=== PATIENT | male | born 1960 | race Caucasian/White ===

== ENCOUNTER 2024-07-22 11:05 | Inpatient (IN) | payer OTHER ==
--- NOTE | 2024-07-22 11:33 | ED ---
Abdominal Pain HPI - General Chief Complaint: Abdominal Pain Stated Complaint: abd pain Time Seen by Provider: 07/22/24 11:18 Source: patient, EMS, RN notes reviewed Mode of arrival: EMS Limitations: no limitations - History of Present Illness Initial Comments: This is a 63-year-old male who presents to the emergency department for abdominal pain. Patient is currently at [facility] for alcohol abuse and has been there since 07/10/2024. States that he started to develop abdominal pain and nausea yesterday. However, this morning the pain became much worse and he went to alert staff. Pain encompasses his whole abdomen, but is worse in the upper portion. He continues to feel nauseous. Denies any history of similar problems in the past. Last bowel movement was yesterday. MD Complaint: abdominal pain - Related Data Home Medications Medication Instructions Recorded Confirmed Acetaminophen Tab [Tylenol] 650 mg PO Q4H PRN 07/22/24 07/22/24 Calcium Phos/D3/Magnesium/Zinc 1 tab PO TID PRN 07/22/24 07/22/24 [Ztlzcfe-Jsw-Wmrr-Vitamin D3] Chlorpheniramine Maleate 4 mg PO Q4H PRN 07/22/24 07/22/24 [Chlor-Trimeton] Ibuprofen [Motrin Ib] 600 mg PO Q6H PRN 07/22/24 07/22/24 Multivitamins, Thera [Multivitamin 1 tab PO DAILY 07/22/24 07/22/24 (formulary)] Thiamine [Vitamin B-1] 100 mg PO DAILY 07/22/24 07/22/24 Tolnaftate [Tinactin] 1 applic TOPICAL DIRECTED 07/22/24 07/22/24 cloNIDine HCL [Catapres] 0.1 - 0.3 mg PO Q4H PRN 07/22/24 07/22/24 guaiFENesin SYRUP 100MG/5ML 200 mg PO Q4H PRN 07/22/24 07/22/24 [Robitussin] ondansetron HCL [Ondansetron HCl] 8 mg PO Q6H PRN 07/22/24 07/22/24 traZODone HCL [Desyrel] 50 - 150 mg PO HS PRN 07/22/24 07/22/24 Allergies Allergy/AdvReac Type Severity Reaction Status Date / Time melatonin AdvReac Anaphylaxis Verified 07/22/24 14:14 Review of Systems ROS Statement: Those systems with pertinent positive or pertinent negative responses have been documented in the HPI. ROS Other: All systems not noted in ROS Statement are negative. General Exam Limitations: no limitations General appearance: alert, in distress Head exam: Present: atraumatic, normocephalic, normal inspection Respiratory exam: Present: normal lung sounds bilaterally. Absent: respiratory distress, wheezes, rales, rhonchi, stridor Cardiovascular Exam: Present: regular rate, normal rhythm, normal heart sounds. Absent: systolic murmur, diastolic murmur, rubs, gallop, clicks GI/Abdominal exam: Present: soft, tenderness (diffuse), normal bowel sounds. Absent: distended Neurological exam: Present: alert, oriented X3, CN II-XII intact Psychiatric exam: Present: normal affect, normal mood Skin exam: Present: warm, dry, intact, normal color. Absent: rash Course Vital Signs 07/22/24 07/22/24 07/22/24 11:08 13:55 14:43 Temperature 98.4 F Pulse Rate 90 85 71 Respiratory 16 16 Rate Blood Pressure 176/96 144/78 144/78 O2 Sat by Pulse 95 95 95 Oximetry Medical Decision Making - Medical Decision Making This is a 63 year old male who presents to the emergency department for abdominal pain. Was pt. sent in by a medical professional or institution? @ -[facility] Did you speak to anyone other than the patient for history? @ -No Did you review nursing and triage notes? @ -Yes, and I agree, it is accurate with regards to the patient's symptoms. Were old charts reviewed? @ -No Differential Diagnosis? @ -Differential Abdominal Pain Men: Appendicitis, cholecystitis, diverticulosis, ischemic bowel, pancreatitis, hepatitis, UTI, gastroenteritis, AAA, incarcerated hernia, bowel obstruction, constipation, inflammatory bowel, hepatitis, peptic ulcer disease, splenic infarction, perforated viscus, testicular torsion, this is not meant to be an all-inclusive list EKG interpreted by me (3pts min.)? @ -EKG interpreted by me demonstrating the following: Sinus rhythm. Ventricular rate 83 bpm, AK interval 151 ms, QRS duration 86 ms, QTc 413 ms. X-rays interpreted by me (1pt min.)? @ -Not obtained CT interpreted by me (1pt min.)? @ -CT scan of the abdomen and pelvis obtained. My interpretation identifies cholelithiasis. U/S interpreted by me (1pt. min.)? @ -Gallbladder ultrasound obtained. My interpretation identifies cholelithiasis. What testing was considered but not performed? (CT, X-rays, U/S, labs)? Why? @ -None What meds were considered but not given? Why? @ -None Did you discuss the management of the patient with other professionals? @ -Yes, Dr. Charlton, who accepts the patient for admission. Did you reconcile home meds? @ -Yes Was smoking cessation discussed for >3mins.? @ -No Was critical care preformed (if so, how long)? @ -No Were there social determinants of health that impacted care today? How? (Homelessness, low income, unemployed, alcoholism, drug addiction, transportation, low edu. Level, literacy, decrease access to med. care, residential, rehab)? @ -No Was there de-escalation of care discussed even if they declined? (Discuss DNR or withdrawal of care, Hospice)? @ -No What co-morbidities impacted this encounter? (DM, HTN, Smoking, COPD, CAD, Cancer, CVA, Hep., AIDS, mental health diagnosis, sleep apnea, morbid obesity)? @ -Alcoholism Was patient admitted / discharged? @ -Admitted. Lab work demonstrates an amylase of 4902 and lipase of greater than 20,000. LFTs within normal limits. CT scan of the abdomen and pelvis had been obtained initially demonstrating subtle inflammatory changes and fluid surrounding the body and tail of the pancreas. He also has a hydropic gallbladder with cholelithiasis. No biliary ductal dilation is identified. After the patient returned from CT scan, the pancreatic enzymes had resulted. Abdominal ultrasound subsequently obtained for further evaluation of the biliary system. The gallbladder was found to be distended with a few small gallstones present. He has some thickening of the lateral hamilton. Patient denies having any alcoholic beverages since the beginning to middle of June. Pancreatitis more likely to then be related to the gallstones. Patient admitted to medicine for gallstone pancreatitis. Consult placed for GI and general surgery. Case discussed with ED attending Dr. Bhardwaj. Undiagnosed new problem with uncertain prognosis? @ -None Drug Therapy requiring intensive monitoring for toxicity (Heparin, Nitro, Insulin, Cardizem)? @ -None Were any procedures done? @ -None Diagnosis/symptom? @ -Gallstone pancreatitis Acute, or Chronic, or Acute on Chronic? @ -Acute Uncomplicated (without systemic symptoms) or Complicated (systemic symptoms)? @ -Complicated Side effects of treatment? @ -None Exacerbation, Progression, or Severe Exacerbation] @ -Not applicable Poses a threat to life or bodily function? @ -Yes, can lead to life threatening infection - Lab Data Result diagrams: 07/22/24 11:37 07/22/24 11:37 Lab Results 07/22/24 07/22/24 07/22/24 Range/Units 11:37 11:37 11:37 WBC 9.3 (3.8-10.6) k/uL RBC 4.61 (4.30-5.90) m/uL Hgb 16.2 (13.0-17.5) gm/dL Hct 48.5 (39.0-53.0) % MCV 105.2 H (80.0-100.0) fL MCH 35.1 H (25.0-35.0) pg MCHC 33.4 (31.0-37.0) g/dL RDW 12.5 (11.5-15.5) % Plt Count 160 (150-450) k/uL MPV 10.8 Neutrophils % 78 % Lymphocytes % 12 % Monocytes % 7 % Eosinophils % 1 % Basophils % 1 % Neutrophils # 7.3 (1.3-7.7) k/uL Lymphocytes # 1.1 (1.0-4.8) k/uL Monocytes # 0.7 (0-1.0) k/uL Eosinophils # 0.1 (0-0.7) k/uL Basophils # 0.1 (0-0.2) k/uL Macrocytosis Slight Sodium 141 (137-145) mmol/L Potassium 4.5 (3.5-5.1) mmol/L Chloride 104 (98-107) mmol/L Carbon Dioxide 31 H (22-30) mmol/L Anion Gap 6 mmol/L BUN 16 (9-20) mg/dL Creatinine 1.02 (0.66-1.25) mg/dL Est GFR (CKD-EPI)AfAm 90 (>60 ml/min/1.73 sqM) Est GFR (CKD-EPI)NonAf 78 (>60 ml/min/1.73 sqM) Glucose 83 (74-99) mg/dL Plasma Lactic Acid Efraín 1.0 (0.7-2.0) mmol/L Calcium 10.0 (8.4-10.2) mg/dL Total Bilirubin 1.2 (0.2-1.3) mg/dL AST 57 (17-59) U/L ALT 30 (4-49) U/L Alkaline Phosphatase 105 (38-126) U/L Total Protein 7.9 (6.3-8.2) g/dL Albumin 4.1 (3.5-5.0) g/dL Amylase 4902 H* (30-110) U/L Lipase >99317 H (23-300) U/L Urine Color Urine Appearance (Clear) Urine pH (5.0-8.0) Ur Specific Olin (1.001-1.035) Urine Protein (Negative) Urine Glucose (UA) (Negative) Urine Ketones (Negative) Urine Blood (Negative) Urine Nitrite (Negative) Urine Bilirubin (Negative) Urine Urobilinogen (<2.0) mg/dL Ur Leukocyte Esterase (Negative) Urine RBC (0-5) /hpf Urine WBC (0-5) /hpf Ur Squamous Epith Cells (0-4) /hpf Amorphous Sediment (None) /hpf 07/22/24 Range/Units 12:35 WBC (3.8-10.6) k/uL RBC (4.30-5.90) m/uL Hgb (13.0-17.5) gm/dL Hct (39.0-53.0) % MCV (80.0-100.0) fL MCH (25.0-35.0) pg MCHC (31.0-37.0) g/dL RDW (11.5-15.5) % Plt Count (150-450) k/uL MPV Neutrophils % % Lymphocytes % % Monocytes % % Eosinophils % % Basophils % % Neutrophils # (1.3-7.7) k/uL Lymphocytes # (1.0-4.8) k/uL Monocytes # (0-1.0) k/uL Eosinophils # (0-0.7) k/uL Basophils # (0-0.2) k/uL Macrocytosis Sodium (137-145) mmol/L Potassium (3.5-5.1) mmol/L Chloride (98-107) mmol/L Carbon Dioxide (22-30) mmol/L Anion Gap mmol/L BUN (9-20) mg/dL Creatinine (0.66-1.25) mg/dL Est GFR (CKD-EPI)AfAm (>60 ml/min/1.73 sqM) Est GFR (CKD-EPI)NonAf (>60 ml/min/1.73 sqM) Glucose (74-99) mg/dL Plasma Lactic Acid Efraín (0.7-2.0) mmol/L Calcium (8.4-10.2) mg/dL Total Bilirubin (0.2-1.3) mg/dL AST (17-59) U/L ALT (4-49) U/L Alkaline Phosphatase (38-126) U/L Total Protein (6.3-8.2) g/dL Albumin (3.5-5.0) g/dL Amylase (30-110) U/L Lipase (23-300) U/L Urine Color Light Yellow Urine Appearance Cloudy (Clear) Urine pH 7.5 (5.0-8.0) Ur Specific Olin 1.011 (1.001-1.035) Urine Protein Negative (Negative) Urine Glucose (UA) Negative (Negative) Urine Ketones Negative (Negative) Urine Blood Negative (Negative) Urine Nitrite Negative (Negative) Urine Bilirubin Negative (Negative) Urine Urobilinogen <2.0 (<2.0) mg/dL Ur Leukocyte Esterase Negative (Negative) Urine RBC 1 (0-5) /hpf Urine WBC 3 (0-5) /hpf Ur Squamous Epith Cells <1 (0-4) /hpf Amorphous Sediment Few H (None) /hpf - Radiology Data Radiology results: report reviewed, image reviewed Disposition Clinical Impression: Gallstone pancreatitis Disposition: ADMITTED IP TO THIS HOSP
[2024-07-22] MEDS: ONDANSETRON 4 MG/2 ML VIAL IVP STA (11:36)
[2024-07-22] MEDS: HYDROmorphone 1 MG/ML 1 ML SYRINGE IVP STA ×2 (11:36→13:31)
[2024-07-22] MEDS: SODIUM CHLORIDE 0.9% 1,000 ML IV STA (11:36)
[2024-07-22 12:03] LABS: Basophils # (A) 0.1 k/uL (0-0.2); Basophils % (A) 1 %; Eosinophils # (A) 0.1 k/uL (0-0.7); Eosinophils % (A) 1 %; HCT 48.5 % (39.0-53.0); HGB 16.2 gm/dL (13.0-17.5); Lymphocytes # (A) 1.1 k/uL (1.0-4.8); Lymphocytes % (A) 12 %; MCH 35.1 pg (25.0-35.0); MCHC 33.4 g/dL (31.0-37.0); MCV 105.2 fL (80.0-100.0); Macrocytosis Slight; Mean Platelet Volume 10.8; Monocytes # (A) 0.7 k/uL (0-1.0); Monocytes % (A) 7 %; Neutrophils # (A) 7.3 k/uL (1.3-7.7); Neutrophils % (A) 78 %; Platelet Count 160 k/uL (150-450); RBC 4.61 m/uL (4.30-5.90); RDW 12.5 % (11.5-15.5); WBC 9.3 k/uL (3.8-10.6)
[2024-07-22 12:15] LABS: Anion Gap 6 mmol/L; Blood Urea Nitrogen 16 mg/dL (9-20); Carbon Dioxide 31 mmol/L (22-30); Chloride 104 mmol/L (98-107); Glucose 83 mg/dL (74-99); Potassium 4.5 mmol/L (3.5-5.1); Sodium 141 mmol/L (137-145)
[2024-07-22 12:16] LABS: ALT 30 U/L (4-49); AST 57 U/L (17-59); African American GFR (CKD) 90 (>60 ml/min/1.73 sqM); Albumin 4.1 g/dL (3.5-5.0); Alkaline Phosphatase 105 U/L (38-126); Non-African American GFR(CKD) 78 (>60 ml/min/1.73 sqM); Total Bilirubin 1.2 mg/dL (0.2-1.3); Total Protein 7.9 g/dL (6.3-8.2)
[2024-07-22 12:58] LABS: Amorphous Sediment,Urine Few /hpf; Appearance,Urine Cloudy (Clear); Bilirubin,Urine Negative (Negative); Blood,Urine Negative (Negative); Color,Urine Light Yellow; Glucose,Urine (UA) Negative (Negative); Ketones,Urine Negative (Negative); Leukocyte Esterase,Urine Negative (Negative); Nitrite,Urine Negative (Negative); PH, Urine 7.5 (5.0-8.0); Protein,Urine Negative (Negative); RBC,Urine 1 /hpf (0-5); Specific Gravity,Urine 1.011 (1.001-1.035); Squamous Epithelial Cell,Urine <1 /hpf (0-4); Urobilinogen,Urine <2.0 mg/dL (<2.0); WBC,Urine 3 /hpf (0-5)
[2024-07-22 13:22] LABS: Amylase 4902 U/L (30-110); Lipase >20000 U/L (23-300)
[2024-07-22] MEDS: KETOROLAC 15 MG/ML 1 ML VIAL IVP STA (13:31)
--- NOTE | 2024-07-22 13:41 | CT ---
EXAMINATION TYPE: CT abdomen pelvis w con CT DLP: 779.6 mGycm, Automated exposure control for dose reduction was used. DATE OF EXAM: 07/22/2024 1:27 PM COMPARISON: None CLINICAL INDICATION:Male, 63 years old with history of abdominal pain, acute, nonlocalized; Nausea, V omiting and Abdominal Distention TECHNIQUE: Standard CT of the abdomen and pelvis following the administration of 100 cc of Isovue 3 00 IV contrast material. Coronal and sagittal reformats were performed. FINDINGS: LOWER CHEST: Posterior dependent subsegmental atelectasis is noted. Coronary artery calcifications. ABDOMEN LIVER: Somewhat nodular contour to the liver without discrete lesion. GALLBLADDER AND BILE DUCTS: Ectopic gallbladder measuring up to 5.2 cm in diameter. Couple punctate g allstones identified. No definitive wall thickening or surrounding inflammatory changes. No biliary d uct dilatation. PANCREAS: The pancreas enhances homogeneously. There is some subtle surrounding fat stranding and flu id identified along the body and tail. No organized fluid collection. No pancreatic calcifications. SPLEEN: Unremarkable. ADRENAL GLANDS: Unremarkable. KIDNEYS AND URETERS: No evidence of hydronephrosis or renal calculus. The kidneys enhance symmetrical ly. Contrast is demonstrated within both collecting systems on the delayed phase. PELVIS BLADDER: Unremarkable REPRODUCTIVE: Coarse calcifications of the prostate gland are identified. ABDOMEN & PELVIS STOMACH AND BOWEL: Stomach and duodenum are unremarkable. Distal clonic diverticulosis without eviden ce for acute diverticulitis. The appendix is within normal limits. No evidence of bowel obstruction. PERITONEUM: No evidence of pneumoperitoneum or free fluid. VASCULATURE: Moderate atherosclerotic calcifications are present throughout the abdominal aorta and i ts branches. No evidence of aortic aneurysm. MUSCULOSKELETAL: No acute osseous abnormalities. Disc bulges identified at L3-L4 and L4-L5 with at le ast mild central canal stenosis. LYMPH NODES: No evidence for lymphadenopathy. SOFT TISSUE/ABDOMINAL WALL: Unremarkable IMPRESSION: 1. Subtle inflammatory changes and fluid surrounding the body and tail of the pancreas. Correlate fo r pancreatitis with lipase levels. 2. Hydropic gallbladder with cholelithiasis. No definitive surrounding inflammatory changes. No bilia ry ductal dilatation identified. If there is concern for acute cholecystitis consider further evaluat ion with ultrasound. 3. Surface nodularity to the liver without focal lesion. Clinically correlate for hepatic cirrhosis v ersus other etiologies such as hepatic fibrosis. 4. Colonic diverticulosis without evidence for acute diverticulitis. [facility], , 07/22/2024 1:39 PM
--- NOTE | 2024-07-22 14:24 | US ---
EXAMINATION TYPE: US gallbladder DATE OF EXAM: 07/22/2024 COMPARISON: Same day CT CLINICAL INDICATION: Male, 63 years old with history of Abdominal pain, pancreatitis; ABD pain, abnor mal CT TECHNIQUE: Grayscale and color Doppler imaging of the right upper quadrant was performed. FINDINGS: EXAM MEASUREMENTS: Liver Length: 11.9 cm Gallbladder Wall: 0.3 cm CBD: 0.6 cm Right Kidney: 10.1 x 5.2 x 5.5 cm MANAGER CONSUMER NOTES: Pancreas: Obscured by bowel gas Liver: Heterogeneous Gallbladder: Hydropic as visualized on CT with a few small gallstones, wall not thickened Evidence for sonographic Falk's sign: Yes CBD: wnl Right Kidney: No evidence of hydro IMPRESSION: 1. Distended gallbladder with few small gallstones present. The lateral hamilton are thickened.. 2. Hepatocellular disease commonly relating to hepatic steatosis. [facility], , 07/22/2024 2:21 PM
[2024-07-22] MEDS ORDERED: NALOXONE 0.4 MG/ML 1 ML VIAL IV PRN (14:34)
[2024-07-22] MEDS ORDERED: ACETAMINOPHEN TAB 325 MG TAB PO PRN ×2 (14:34→15:03)
[2024-07-22] MEDS ORDERED: ONDANSETRON 4 MG/2 ML VIAL IVP PRN (14:34)
[2024-07-22] MEDS ORDERED: NON FORMULARY DRUG (Calcium Phos/D3/Magnesium/Zinc [Calcium-Mag-Zinc-Vitamin D3] 1 EACH Ta PO PRN (15:03)
[2024-07-22] MEDS ORDERED: cloNIDine HCL 0.1 MG TAB PO PRN (15:03)
[2024-07-22] MEDS ORDERED: IBUPROFEN 600 MG TAB PO PRN (15:03)
[2024-07-22] MEDS ORDERED: traZODone HCL 50 MG TAB PO PRN (15:03)
[2024-07-22] MEDS ORDERED: ONDANSETRON 4 MG TAB PO PRN (15:03)
[2024-07-22] MEDS: SODIUM CHLORIDE 0.9% 1,000 ML IV SCH (15:05)
--- NOTE | 2024-07-22 15:40 | P.CON ---
Consult Note - . Consult date: 07/22/24 Assessment/Plan:: This is a 63-year-old male who presented to the [facility] ED for abdominal pain. Patient is currently at [facility] for alcohol abuse and has been there since 07/10/2024. States that he started to develop abdominal pain and nausea yesterday. However, this morning the pain became much worse and he went to alert staff. Pain encompasses his whole abdomen, but is worse in the upper portion. He continues to feel nauseous. Denies any history of similar problems in the past. Last bowel movement was yesterday. He had a CT-AP which showed inflammation around his pancreas. He also had a RUQ which showed gallstones. Review of Systems ROS Statement: Those systems with pertinent positive or pertinent negative responses have been documented in the HPI. ROS Other: All systems not noted in ROS Statement are negative. PMHX: Reviewed PSHX: Reviewed General Exam Limitations: no limitations General appearance: alert, in distress Head exam: Present: atraumatic, normocephalic, normal inspection Respiratory exam: Present: normal lung sounds bilaterally. Absent: respiratory distress, wheezes, rales, rhonchi, stridor Cardiovascular Exam: Present: regular rate, normal rhythm, normal heart sounds. Absent: systolic murmur, diastolic murmur, rubs, gallop, clicks GI/Abdominal exam: Present: soft, tenderness (diffuse), normal bowel sounds. Absent: distended Neurological exam: Present: alert, oriented X3, CN II-XII intact Psychiatric exam: Present: normal affect, normal mood Skin exam: Present: warm, dry, intact, normal color. Absent: rash 63 year old male with Pancreatitis. RUQ shows Gallstones. Patient does have history of Alcoholism -NPO -IV fluids -Pain and Nausea Controlled -Imaging Reviewed -Possible inpatient cholecystectomy based on patients clinical course -AM labs -[facility] [phone]
--- NOTE | 2024-07-22 17:44 | P.HPIM ---
History of Present Illness H&P Date: 07/22/24 History of Presenting Illness: Patient is a 63-year-old male with a past medical history of daily alcohol abuse with last reported drink being mid June and has been at inpatient drug and alcohol rehabilitation facility, [facility] since 07/10/24. Patient reports he has been experiencing abdominal pain since yesterday and worsening today and was sent to the emergency department for evaluation. Patient reports diffuse intense abdominal pain throughout entire abdomen worse in epigastric region and bilateral upper quadrants accompanied by nausea. He denies having any fevers, chills, diaphoresis, chest pain, palpitations, shortness of breath, cough or congestion, vomiting, hematemesis, constipation, diarrhea, melena, hematochezia, or experiencing any difficulties with or changes in urinary function. Patient denies history of pancreatitis in the past. Upon arrival to our facility, patient underwent evaluation in the emergency department. Vital signs upon arrival show blood pressure 176/96, heart rate 90, respiratory rate 16, temp 98.4 F, and SpO2 of 95% on room air. Labs completed and reviewed. CBC showing macrocytosis with MCV of 105.2 otherwise normal findings. BMP showing hypercarbia with bicarb of 31 otherwise normal findings blood glucose 83. Lactic acid 1.0. Liver profile unremarkable. Amylase critical at 4902 and lip ase greater than 20,000. Urinalysis negative for blood or infection. Gallbladder ultrasound showing distended gallbladder with few small gallstones and thickened lateral hamilton with hepatocellular disease/hepatic steatosis. CT abdomen and pelvis with IV contrast then completed showing subtle inflammatory changes and fluid surrounding the body and tail of the pancreas consistent with acute pancreatitis, hydropic gallbladder with cholelithiasis, surface nodularity of the liver without focal lesions suspicious for hepatic cirrhosis and colonic diverticulosis without evidence for acute diverticulitis. Patient admitted under our services with consultation to gastroenterology and general surgery secondary to gallstone pancreatitis. Review of systems: Pertinent positives and negatives as discussed in HPI, a complete review of systems was performed and all other systems are negative. Physical exam: Vital signs reviewed and stable. General: Nontoxic, no distress and appears stated age. Derm: Skin warm and dry, normal coloration for ethnicity. Head: Atraumatic, normocephalic and symmetric. Eyes: EOM's intact, no lid lag, and anicteric sclera Mouth: no lip lesions, mucus membranes moist Cardiovascular: regular rate and rhythm with normal S1S2, no murmur, positive posterior tibial pulses bilaterally, and cap refill < 2 seconds. Lungs: Respirations even, regular, and unlabored on room air. Lungs CTA bilaterally, no rhonchi, no rales, no wheezing, and no accessory muscle usage. Abdominal: Soft, Diffuse tenderness throughout palpation worse in epigastric and upper quadrants. Ext: ROM intact. No gross muscle atrophy, no edema, no contractures Neuro: Speech clear, face symmetrical and CN II-XII grossly intact with no noted focal neuro deficits Psych: Alert and oriented to person, place, time, and situation. Appropriate and pleasant affect. Assessment and Plan of Care: Gallstone pancreatitis -NPO exception of ice chips -Vigorous IV fluid hydration with lactated Ringer's at 150 cc/h. -Symptomatic care and pain management with Toradol 15 mg every 6 hours as needed for mild to moderate pain, Dilaudid 0.5 mg every 3 hours as needed for moderate to severe pain and Dilaudid 1 mg IVP every 3 hours as needed for breakthrough severe pain. -GI prophylaxis with Protonix 40 mg daily. -Gastroenterology consulted, appreciate recommendations -General Surgeon consulted, appreciate recommendations Alcohol abuse Hepatic steatosis, suspected hepatic cirrhosis Macrocytosis, secondary to chronic alcohol abuse -Patient reports last alcoholic drink was mid-June and has been at inpatient drug and alcohol rehabilitation facility since 07/10/2024. -Continue daily thiamine, folic acid, and multivitamin. -Recommend returning to [facility] upon discharge Data and imaging reviewed: -As stated above in HPI The patient is admitted with an anticipated greater than 2 midnight stay for evaluation of acute gallstone pancreatitis. CODE STATUS: Full code DVT prophylaxis: Lovenox Anticipated discharge date: Pending clinical course Anticipated discharge place: Home versus return to [facility] Patient was seen independently by Nurse Practitioner. This document was prepared using [employer] dictation software. Please allow for errors in federal air marshal while rare they do occur. Kody Ervin NP rendered care for this patient independently, reviewed the findings and plan as documented in the note above. I did not physically speak with or examine the patient on this date. Medications and Allergies Home Medications Medication Instructions Recorded Confirmed Type Acetaminophen Tab [Tylenol] 650 mg PO Q4H PRN 07/22/24 07/22/24 History Calcium Phos/D3/Magnesium/Zinc 1 tab PO TID PRN 07/22/24 07/22/24 History [Otyqrrz-Ugo-Nboj-Vitamin D3] Chlorpheniramine Maleate 4 mg PO Q4H PRN 07/22/24 07/22/24 History [Chlor-Trimeton] Ibuprofen [Motrin Ib] 600 mg PO Q6H PRN 07/22/24 07/22/24 History Multivitamins, Thera [Multivitamin 1 tab PO DAILY 07/22/24 07/22/24 History (formulary)] Thiamine [Vitamin B-1] 100 mg PO DAILY 07/22/24 07/22/24 History Tolnaftate [Tinactin] 1 applic TOPICAL DIRECTED 07/22/24 07/22/24 History cloNIDine HCL [Catapres] 0.1 - 0.3 mg PO Q4H PRN 07/22/24 07/22/24 History guaiFENesin SYRUP 100MG/5ML 200 mg PO Q4H PRN 07/22/24 07/22/24 History [Robitussin] ondansetron HCL [Ondansetron HCl] 8 mg PO Q6H PRN 07/22/24 07/22/24 History traZODone HCL [Desyrel] 50 - 150 mg PO HS PRN 07/22/24 07/22/24 History Allergies Allergy/AdvReac Type Severity Reaction Status Date / Time melatonin AdvReac Anaphylaxis Verified 07/22/24 14:14 Physical Exam Vitals: Vital Signs Temp Pulse Resp BP Pulse Ox 07/22/24 14:43 71 16 144/78 95 07/22/24 13:55 85 144/78 95 07/22/24 11:08 98.4 F 90 16 176/96 95 Intake and Output 07/22/24 07/22/24 07/22/24 06:59 14:59 22:59 Other: Weight 65.771 kg Results CBC & Chem 7: 07/22/24 11:37 07/22/24 11:37 Labs: Abnormal Lab Results - Last 24 Hours (Table) 07/22/24 07/22/24 07/22/24 Range/Units 11:37 11:37 12:35 MCV 105.2 H (80.0-100.0) fL MCH 35.1 H (25.0-35.0) pg Carbon Dioxide 31 H (22-30) mmol/L Amylase 4902 H* (30-110) U/L Lipase >52413 H (23-300) U/L Amorphous Sediment Few H (None) /hpf
[2024-07-22] MEDS: CLOTRIMAZOLE 1% CREAM 30 GM TUBE TOPICAL SCH (19:56)
[2024-07-22] MEDS: LACTATED RINGERS 1,000 ML IV SCH (20:00)
[2024-07-23] MEDS: HYDROmorphone 2 MG/ML 1 ML SYRINGE IVP PRN (08:35)
[2024-07-23] MEDS: THIAMINE 100 MG TAB PO SCH (08:38)
[2024-07-23] MEDS: FOLIC ACID 1 MG TAB PO SCH (08:38)
[2024-07-23] MEDS: PANTOPRAZOLE 40 MG/10 ML VIAL IV SCH (08:38)
[2024-07-23] MEDS: MULTIVITAMINS, THERA 1 EACH TAB PO SCH (08:38)
[2024-07-23] MEDS: ENOXAPARIN 40 MG/0.4 ML SYRINGE SQ SCH (08:38)
[2024-07-23 08:47] LABS: Basophils # (A) 0.07 X 10*3/uL (0.00-0.10); Basophils % (A) 1.3 %; Eosinophils # (A) 0.05 X 10*3/uL (0.04-0.35); Eosinophils % (A) 0.9 %; HCT 41.3 % (39.6-50.0); HGB 13.8 g/dL (13.0-17.0); Lymphocytes # (A) 1.46 X 10*3/uL (0.90-5.00); Lymphocytes % (A) 26.3 %; MCH 34.4 pg (27.0-32.0); MCHC 33.4 g/dL (32.0-37.0); Mean Platelet Volume 13.3 FL (9.5-12.2); Monocytes # (A) 0.67 X 10*3/uL (0.20-1.00); Monocytes % (A) 12.1 %; NRBC Per 100 WBC 0 X 10*3/uL (0.00-0.01); Neutrophils # (A) 3.29 X 10*3/uL (1.80-7.70); Platelet Count 126 X 10*3/uL (140-440); RBC 4.01 X 10*6/uL (4.40-5.60); RDW 12.4 % (11.5-14.5); WBC 5.56 X 10*3/uL (4.50-10.00)
[2024-07-23 08:51] LABS: ALT 21 U/L (10-49); AST 37 U/L (14-35); Albumin 3.2 g/dL (3.8-4.9); Albumin/Globulin Ratio 1.19 Ratio (1.60-3.17); Alkaline Phosphatase 80 U/L (41-126); BUN/Creat Ratio 15.33 Ratio (12.00-20.00); Bilirubin, Conjugated 0.25 mg/dL (0.20-0.40); Blood Urea Nitrogen 13.8 mg/dL (9.0-27.0); Calcium 8.7 mg/dL (8.7-10.3); Carbon Dioxide 24.5 mmol/L (21.6-31.8); Chloride 106 mmol/L (96-109); Globulin 2.7 g/dL (1.6-3.3); Glucose 75 mg/dL (70-110); Magnesium 1.8 mg/dL (1.5-2.4); Potassium 4.4 mmol/L (3.5-5.5); Sodium 139 mmol/L (135-145); Total Bilirubin 0.5 mg/dL (0.3-1.2); Total Protein 5.9 g/dL (6.2-8.2)
[2024-07-23 09:04] LABS: Lipase 954 U/L (14-60)
--- NOTE | 2024-07-23 13:21 | P.PN ---
Subjective Progress Note Date: 07/23/24 Patient seen and examined at bedside. States abdominal pain is improving and he now has abdominal soreness. Requesting something to eat. Strange affect and states that he is from [place]. Objective - Vital Signs Vital signs: Vital Signs Temp 98.1 F 07/23/24 07:00 Pulse 77 07/23/24 07:00 Resp 16 07/23/24 07:00 BP 104/61 07/23/24 07:00 Pulse Ox 93 L 07/23/24 07:00 FiO2 Intake & Output 07/22/24 07/23/24 07/23/24 18:59 06:59 18:59 Weight 65.771 kg Other: # Voids 1 - Constitutional General appearance: Present: cooperative, no acute distress - Neck Neck: Present: normal ROM - Respiratory Details: No difficulty with respiration - Gastrointestinal Gastrointestinal Comment(s): Soft, some tenderness to palpation in the right upper quadrant and epigastrium - Psychiatric Psychiatric: Absent: appropriate affect - Labs CBC & Chem 7: 07/23/24 04:29 07/23/24 04:29 Labs: Abnormal Lab Results - Last 24 Hours (Table) 07/22/24 07/23/24 07/23/24 Range/Units 11:37 04:29 04:29 RBC 4.01 L (4.40-5.60) X 10*6/uL MCV 103.0 H (80.0-97.0) FL MCH 34.4 H (27.0-32.0) pg Plt Count 126 L (140-440) X 10*3/uL MPV 13.3 H (9.5-12.2) FL AST 37 H (14-35) U/L Total Protein 5.9 L (6.2-8.2) g/dL Albumin 3.2 L (3.8-4.9) g/dL Albumin/Globulin Ratio 1.19 L (1.60-3.17) Ratio Amylase 4902 H* (30-110) U/L Lipase >67290 H 954 H (23-300) U/L Assessment and Plan Plan: 63-year-old male with concern for gallstone pancreatitis. Pancreatitis appears to be improving and patient's symptoms appear to be improving. Clear liquid diet today. Likely n.p.o. at midnight with possibility of cholecystectomy tomorrow. This was explained to the patient and he is agreeable with the plan.
[2024-07-23 14:00] LABS: Bilirubin,Unconjugated 0.2 mg/dL (0.2-1.0)
--- NOTE | 2024-07-23 16:22 | P.PN ---
Subjective Progress Note Date: 07/23/24 Hospital Course: Patient is a 63-year-old male with a past medical history of daily alcohol abuse with last reported drink being mid June and has been at inpatient drug and alcohol rehabilitation facility, [facility] since 07/10/24. Patient reports he has been experiencing abdominal pain since yesterday and worsening today and was sent to the emergency department for evaluation. Patient reports diffuse intense abdominal pain throughout entire abdomen worse in epigastric region and bilateral upper quadrants accompanied by nausea. He denies having any fevers, chills, diaphoresis, chest pain, palpitations, shortness of breath, cough or congestion, vomiting, hematemesis, constipation, diarrhea, melena, hematochezia, or experiencing any difficulties with or changes in urinary function. Patient denies history of pancreatitis in the past. Upon arrival to our facility, patient underwent evaluation in the emergency department. Vital signs upon arr ival show blood pressure 176/96, heart rate 90, respiratory rate 16, temp 98.4 F, and SpO2 of 95% on room air. Labs completed and reviewed. CBC showing macrocytosis with MCV of 105.2 otherwise normal findings. BMP showing hypercarbia with bicarb of 31 otherwise normal findings blood glucose 83. Lactic acid 1.0. Liver profile unremarkable. Amylase critical at 4902 and lipase greater than 20,000. Urinalysis negative for blood or infection. Gallbladder ultrasound showing distended gallbladder with few small gallstones and thickened lateral hamilton with hepatocellular disease/hepatic steatosis. CT abdomen and pelvis with IV contrast then completed showing subtle inflammatory changes and fluid surrounding the body and tail of the pancreas consistent with acute pancreatitis, hydropic gallbladder with cholelithiasis, surface nodularity of the liver without focal lesions suspicious for hepatic cirrhosis and colonic diverticulosis without evidence for acute diverticulitis. Patient admitted under our services with consultation to gastroenterology and general surgery secondary to gallstone pancreatitis. Physical exam: Patient was seen and fully evaluated at bedside. He reports pain medication is taking the edge of his abdominal pain, but reports it remains. He denies any nausea or vomiting or any further complaints at this time.. Vital signs reviewed and stable. General: Nontoxic, no distress and appears stated age. Derm: Skin warm and dry, normal coloration for ethnicity. Head: Atraumatic, normocephalic and symmetric. Eyes: EOM's intact, no lid lag, and anicteric sclera Mouth: no lip lesions, mucus membranes moist Cardiovascular: regular rate and rhythm with normal S1S2, no murmur, positive posterior tibial pulses bilaterally, and cap refill < 2 seconds. Lungs: Respirations even, regular, and unlabored on room air. Lungs CTA bilaterally, no rhonchi, no rales, no wheezing, and no accessory muscle usage. Abdominal: Soft, Diffuse tenderness throughout palpation worse in epigastric and upper quadrants. Ext: ROM intact. No gross muscle atrophy, no edema, no contractures Neuro: Speech clear, face symmetrical and CN II-XII grossly intact with no noted focal neuro deficits Psych: Alert and oriented to person, place, time, and situation. Appropriate and pleasant affect. Assessment and Plan of Care: Gallstone pancreatitis -NPO exception of ice chips -Vigorous IV fluid hydration with lactated Ringer's at 150 cc/h. -Symptomatic care and pain management with Toradol 15 mg every 6 hours as needed for mild to moderate pain, Dilaudid 0.5 mg every 3 hours as needed for moderate to severe pain and Dilaudid 1 mg IVP every 3 hours as needed for breakthrough severe pain. -GI prophylaxis with Protonix 40 mg daily. -Gastroenterology consulted, appreciate recommendations -General Surgeon consulted, appreciate recommendations Alcohol abuse Hepatic steatosis, suspected hepatic cirrhosis Macrocytosis, secondary to chronic alcohol abuse -Patient reports last alcoholic drink was mid-June and has been at inpatient drug and alcohol rehabilitation facility since 07/10/2024. -Continue daily thiamine, folic acid, and multivitamin. -Recommend returning to [facility] upon discharge Data and imaging reviewed: -Labs completed and reviewed. CBC showing macrocytosis with MCV of 103.0 and mild thrombocytopenia with platelet count of 126 otherwise normal findings. BMP unremarkable. Blood glucose 75. Magnesium 1.8. Liver profile showing elevated AST of 37 otherwise normal findings. -Vital signs reviewed. Blood pressure 104/61, heart rate 77, respiratory rate 1 6, temp 98.1 F, and SpO2 of 93% on room air. CODE STATUS: Full code DVT prophylaxis: Lovenox Anticipated discharge date: Pending clinical course Anticipated discharge place: Home versus return to [facility] Patient was seen independently by Nurse Practitioner. This document was prepared using [employer] dictation software. Please allow for errors in medical transcription radiology while rare they do occur. Kody Ervin NP rendered care for this patient independently, reviewed the findings and plan as documented in the note above and agree with plan. I did not physically speak with or examine the patient on this date. Objective - Vital Signs Vital signs: Vital Signs Temp 98.1 F 07/23/24 07:00 Pulse 77 07/23/24 07:00 Resp 16 07/23/24 07:00 BP 104/61 07/23/24 07:00 Pulse Ox 93 L 07/23/24 07:00 FiO2 Intake & Output 07/22/24 07/23/24 07/23/24 18:59 06:59 18:59 Weight 65.771 kg Other: # Voids 1 - Labs CBC & Chem 7: 07/23/24 04:29 07/23/24 04:29 Labs: Abnormal Lab Results - Last 24 Hours (Table) 07/22/24 07/22/24 07/22/24 Range/Units 11:37 11:37 12:35 RBC (4.40-5.60) X 10*6/uL MCV 105.2 H (80.0-100.0) fL MCH 35.1 H (25.0-35.0) pg Plt Count (140-440) X 10*3/uL MPV (9.5-12.2) FL Carbon Dioxide 31 H (22-30) mmol/L AST (14-35) U/L Total Protein (6.2-8.2) g/dL Albumin (3.8-4.9) g/dL Albumin/Globulin Ratio (1.60-3.17) Ratio Amylase 4902 H* (30-110) U/L Lipase >68474 H (23-300) U/L Amorphous Sediment Few H (None) /hpf 07/23/24 07/23/24 Range/Units 04:29 04:29 RBC 4.01 L (4.40-5.60) X 10*6/uL MCV 103.0 H (80.0-100.0) fL MCH 34.4 H (25.0-35.0) pg Plt Count 126 L (140-440) X 10*3/uL MPV 13.3 H (9.5-12.2) FL Carbon Dioxide (22-30) mmol/L AST 37 H (14-35) U/L Total Protein 5.9 L (6.2-8.2) g/dL Albumin 3.2 L (3.8-4.9) g/dL Albumin/Globulin Ratio 1.19 L (1.60-3.17) Ratio Amylase (30-110) U/L Lipase (23-300) U/L Amorphous Sediment (None) /hpf
--- NOTE | 2024-07-23 16:34 | P.CONS ---
History of Present Illness - Reason for Consult Consult date: 07/23/24 Gallstone pancreatitis Requesting physician: Teresa Blue - Chief Complaint Abdominal pain - History of Present Illness This a pleasant 63-year-old male with a history of alcoholism who has been at [facility] for the last 24 days. States he started getting severe abdominal pain which was not improving. He had some associated nausea and vomiting. He was sent to the emergency department for further evaluation. He had blood work done that showed elevated amylase at 4902 and lipase greater than 20,000. Liver enzymes were unremarkable. He had a CT of the abdomen that showed subtle inflammatory changes around pancreas, hydropic gallbladder with cholelithiasis with no CBD dilation. Patient was admitted with consult to gastroenterology and general surgery for gallstone pancreatitis. States abdominal pain is better today. No nausea or vomiting. No previous history of pancreatitis. Today's repeat lipase 954, liver enzymes remain unremarkable. Review of Systems REVIEW OF SYSTEMS: CARDIOPULMONARY: No chest pain or shortness of breath. Gastrointestinal: Abdominal pain. No nausea or vomiting. No hematemesis, coffee-ground emesis. No rectal bleeding, or melena. GENITOURINARY: No dysuria or hematuria. MUSCULOSKELETAL: Reports normal range of motion. SKIN: No rashes. No jaundice. ENDOCRINE: No chills, fevers. No excessive weight gain or loss. No polydipsia or polyuria. PSYCHIATRIC: Unremarkable. NEUROLOGY: No change in mental status. Denies dizziness, headache. ENT: Vision unremarkable. CONSTITUTIONAL: No recent weight loss. No fever, chills, night sweats. Past Medical History History of Any Multi-Drug Resistant Organisms: None Reported Smoking Status: Unknown if ever smoked Medications and Allergies Home Medications Medication Instructions Recorded Confirmed Type Acetaminophen Tab [Tylenol] 650 mg PO Q4H PRN 07/22/24 07/22/24 History Calcium Phos/D3/Magnesium/Zinc 1 tab PO TID PRN 07/22/24 07/22/24 History [Eboxrww-Iqa-Cinz-Vitamin D3] Chlorpheniramine Maleate 4 mg PO Q4H PRN 07/22/24 07/22/24 History [Chlor-Trimeton] Ibuprofen [Motrin Ib] 600 mg PO Q6H PRN 07/22/24 07/22/24 History Multivitamins, Thera [Multivitamin 1 tab PO DAILY 07/22/24 07/22/24 History (formulary)] Thiamine [Vitamin B-1] 100 mg PO DAILY 07/22/24 07/22/24 History Tolnaftate [Tinactin] 1 applic TOPICAL DIRECTED 07/22/24 07/22/24 History cloNIDine HCL [Catapres] 0.1 - 0.3 mg PO Q4H PRN 07/22/24 07/22/24 History guaiFENesin SYRUP 100MG/5ML 200 mg PO Q4H PRN 07/22/24 07/22/24 History [Robitussin] ondansetron HCL [Ondansetron HCl] 8 mg PO Q6H PRN 07/22/24 07/22/24 History traZODone HCL [Desyrel] 50 - 150 mg PO HS PRN 07/22/24 07/22/24 History Allergies Allergy/AdvReac Type Severity Reaction Status Date / Time melatonin AdvReac Anaphylaxis Verified 07/22/24 14:14 Physical Exam Vitals: Vital Signs Temp Pulse Pulse Resp BP BP Pulse Ox 07/23/24 07:00 98.1 F 77 16 104/61 93 L 07/23/24 02:53 99.4 F 75 16 130/81 93 L 07/22/24 19:40 97.8 F 79 18 138/74 91 L 07/22/24 18:22 67 18 126/71 96 07/22/24 14:43 71 16 144/78 95 07/22/24 13:55 85 144/78 95 07/22/24 11:08 98.4 F 90 16 176/96 95 Intake and Output 07/22/24 07/23/24 07/23/24 22:59 06:59 14:59 Other: # Voids 1 1 General appearance: The patient is alert, oriented, appears in no acute distress. HET: Head is normocephalic and atraumatic. Conjunctiva pink. Sclera anicteric. Neck: Supple without lymphadenopathy. Trachea midline. Heart: Regular. Lungs: Equal expansion, normal respiratory effort. Abdomen: Soft, epigastric tenderness, nondistended. Skin: No rashes. No jaundice. Extremities: Normal skin color and turgor. No pedal edema. Neurological: No focal deficits. Alert and oriented x3. Results CBC & Chem 7: 07/23/24 04:29 11/06/24 04:29 Labs: Abnormal Lab Results - Last 24 Hours (Table) 07/22/24 07/22/24 07/22/24 Range/Units 11:37 11:37 12:35 RBC (4.40-5.60) X 10*6/uL MCV 105.2 H (80.0-100.0) fL MCH 35.1 H (25.0-35.0) pg Plt Count (140-440) X 10*3/uL MPV (9.5-12.2) FL Carbon Dioxide 31 H (22-30) mmol/L AST (14-35) U/L Total Protein (6.2-8.2) g/dL Albumin (3.8-4.9) g/dL Albumin/Globulin Ratio (1.60-3.17) Ratio Amylase 4902 H* (30-110) U/L Lipase >30456 H (23-300) U/L Amorphous Sediment Few H (None) /hpf 07/23/24 07/23/24 Range/Units 04:29 04:29 RBC 4.01 L (4.40-5.60) X 10*6/uL MCV 103.0 H (80.0-100.0) fL MCH 34.4 H (25.0-35.0) pg Plt Count 126 L (140-440) X 10*3/uL MPV 13.3 H (9.5-12.2) FL Carbon Dioxide (22-30) mmol/L AST 37 H (14-35) U/L Total Protein 5.9 L (6.2-8.2) g/dL Albumin 3.2 L (3.8-4.9) g/dL Albumin/Globulin Ratio 1.19 L (1.60-3.17) Ratio Amylase (30-110) U/L Lipase 954 H (23-300) U/L Amorphous Sediment (None) /hpf Comments: Gallbladder ultrasound reports distended gallbladder with few small gallstones present. Lateral hamilton are thickened. Hepatocellular disease commonly relating to hepatic steatosis. CT abdomen pelvis with contrast reports subtle inflammatory changes and fluid surrounding the body and tail of the pancreas. Correlate for pancreatitis with lipase levels. Hydropic gallbladder with cholelithiasis. No definitive surrounding inflammatory changes. No biliary ductal dilation identified. If there is concern for acute cholecystitis consider further evaluation with ultrasound. Surface nodularity to the liver without focal lesion. Clinically correlate for hepatic cirrhosis versus other etiologies such as hepatic fibrosis. Colonic diverticulosis without evidence for acute diverticulitis Assessment and Plan (1) Gallstone pancreatitis Narrative/Plan: 63-year-old male presented with abdominal pain with notable elevated amylase and lipase without any elevation in his liver function test. Does have longstanding history of alcoholism and was at [place]. CT and ultrasound evidence of cholelithiasis without any biliary dilation. Likely dealing with gallstone pancreatitis, may be superimposed with some alcohol pancreatitis. There is no indication for ERCP. Continue with symptomatic treatment and recommendations from general surgery. Current Visit: Yes Status: Acute Code(s): K85.10 - BILIARY ACUTE PANCREATITIS WITHOUT NECROSIS OR INFECTION SNOMED Code(s): 88890428 (2) Alcohol abuse Current Visit: Yes Status: Acute Code(s): F10.10 - ALCOHOL ABUSE, UNCOMPLICATED SNOMED Code(s): 54572576 Plan: 1. Continue symptomatic and supportive care 2. Clear liquid diet 3. Continue aggressive IV hydration 4. Pain medication as needed 5. Antiemetics as needed 6. Protonix 40 mg daily for GI prophylaxis 7. There is no indication for any gastroenterology intervention at this time 8. Continue with recommendations from general surgery 9. Repeat CMP tomorrow Thank you for this consultation, we will continue to follow. Dr. Corina Costa I agree with the dictator's note, documented as a scribe by Shelly Orozco.
[2024-07-23] MEDS: guaiFENesin SYRUP 100MG/5ML 200 MG/10 ML CUP PO PRN (16:58)
[2024-07-24 09:26] LABS: ALT 22 U/L (10-49); AST 38 U/L (14-35); Albumin 3.3 g/dL (3.8-4.9); Alkaline Phosphatase 78 U/L (41-126); Blood Urea Nitrogen 10.6 mg/dL (9.0-27.0); Calcium 8.8 mg/dL (8.7-10.3); Carbon Dioxide 21.7 mmol/L (21.6-31.8); Chloride 104 mmol/L (96-109); Glucose 77 mg/dL (70-110); Potassium 4.1 mmol/L (3.5-5.5); Sodium 138 mmol/L (135-145); Total Bilirubin 0.6 mg/dL (0.3-1.2); Total Protein 6.3 g/dL (6.2-8.2)
[2024-07-24] MEDS: diphenhydrAMINE 25 MG CAP PO PRN (09:33)
[2024-07-24] MEDS: NICOTINE 21MG/24HR PATCH TRANSDERM SCH (09:34)
[2024-07-24] MEDS: IV FLUID CONTINUATION 1,000 ML IV ONE (11:47)
[2024-07-24] MEDS: ONDANSETRON 4 MG/2 ML VIAL IVP STA (11:50)
[2024-07-24] MEDS: DEXAMETHASONE SOD PHOSPHATE 4 MG/ML 1 ML VIAL IVP STA (11:50)
[2024-07-24] MEDS ORDERED: diphenhydrAMINE 50 MG/ML 1 ML VIAL IM PRN (12:25)
[2024-07-24] MEDS: diphenhydrAMINE 50 MG/ML 1 ML VIAL IVP PRN (12:28)
[2024-07-24] MEDS ORDERED: SUCCINYLCHOLINE CHLORIDE 200 MG/10 ML VIAL IV ONE (12:42)
[2024-07-24] MEDS ORDERED: ceFAZolin 1 GM/50 ML BAG (PMX) ONE (12:42)
[2024-07-24] MEDS ORDERED: MIDAZOLAM 2 MG/2 ML VIAL ONE (12:42)
[2024-07-24] MEDS ORDERED: NEOSTIGMINE 1 MG/ML 10 ML VIAL ONE (12:42)
[2024-07-24] MEDS ORDERED: LIDOCAINE 1% INJ 10MG/ML (20 ML MDV) ONE (12:42)
[2024-07-24] MEDS ORDERED: fentaNYL (PF) 50 MCG/ML 2 ML AMP ONE (12:42)
[2024-07-24] MEDS ORDERED: HYDROmorphone (PF) 1 MG/ML ONE (12:42)
[2024-07-24] MEDS ORDERED: GLYCOPYRROLATE 0.2 MG/ML 2 ML VIAL ONE (12:42)
[2024-07-24] MEDS ORDERED: PROPOFOL 10 MG/ML 20 ML VIAL IV ONE (12:42)
[2024-07-24] MEDS ORDERED: KETOROLAC 15 MG/ML 1 ML VIAL ONE (12:42)
[2024-07-24] MEDS ORDERED: ROCURONIUM 10 MG/ML (5 ML VIAL) IV ONE (12:42)
[2024-07-24] MEDS: SODIUM CHLORIDE 0.9% 100 ML with ceFAZolin 2,000 MG IV ONE (12:47)
[2024-07-24] MEDS: LIDOCAINE 1%-EPI 1:100,000 20 ML VIAL SQ ONE ×2 (13:03)
--- NOTE | 2024-07-24 13:43 | P.PN ---
Subjective Progress Note Date: 07/24/24 Principal diagnosis: Pancreatitis This a pleasant 63-year-old male with a history of alcoholism who has been at [facility] for the last 24 days. States he started getting severe abdominal pain which was not improving. He had some associated nausea and vomiting. He was sent to the emergency department for further evaluation. He had blood work done that showed elevated amylase at 4902 and lipase greater than 20,000. Liver enzymes were unremarkable. He had a CT of the abdomen that showed subtle inflammatory changes around pancreas, hydropic gallbladder with cholelithiasis with no CBD dilation. Patient was admitted with consult to gastroenterology and general surgery for gallstone pancreatitis. States abdominal pain is better today. No nausea or vomiting. No previous history of pancreatitis. Today's repeat lipase 954, liver enzymes remain unremarkable. 07/24/2024 Patient seen and examined today as a follow-up. He is scheduled for laparoscopic cholecystectomy today. LFTs are unremarkable. No lipase available at this time. Patient states abdominal pain is improving. No nausea or vomiting. Currently n.p.o. for surgery. Objective - Vital Signs Vital signs: Vital Signs Temp 98.5 F 07/24/24 07:27 Pulse 71 07/24/24 08:00 Resp 16 07/24/24 08:00 BP 124/68 07/24/24 07:27 Pulse Ox 97 07/24/24 06:50 FiO2 Intake & Output 07/23/24 07/24/24 07/24/24 18:59 06:59 18:59 Intake Total 597 0 Balance 597 0 Intake: Oral 597 0 Other: # Voids 4 2 - Exam General appearance: The patient is alert, oriented, appears in no acute distress. HET: Head is normocephalic and atraumatic. Conjunctiva pink. Sclera anicteric. Neck: Supple without lymphadenopathy. Abdomen: Soft, epigastric and right upper quadrant tenderness, nondistended. Extremities: Normal skin color and turgor. No pedal edema Skin: No rashes, no jaundice Neurological: No focal deficits. Alert and oriented. - Labs CBC & Chem 7: 07/23/24 04:29 07/24/24 04:58 Labs: Abnormal Lab Results - Last 24 Hours (Table) 07/24/24 Range/Units 04:58 Anion Gap 12.30 H (4.00-12.00) mmol/L BUN/Creatinine Ratio 10.60 L (12.00-20.00) Ratio AST 38 H (14-35) U/L Albumin 3.3 L (3.8-4.9) g/dL Albumin/Globulin Ratio 1.10 L (1.60-3.17) Ratio Assessment and Plan (1) Gallstone pancreatitis Narrative/Plan: 63-year-old male presented with abdominal pain with notable elevated amylase and lipase without any elevation in his liver function test. Does have longstanding history of alcoholism and was at [facility]. CT and ultrasound evidence of cholelithiasis without any biliary dilation. Likely dealing with gallstone pancreatitis, may be superimposed with some alcohol pancreatitis. There is no indication for ERCP. Continue with symptomatic treatment and recommendations from general surgery. Current Visit: Yes Status: Acute Code(s): K85.10 - BILIARY ACUTE PANCREATITIS WITHOUT NECROSIS OR INFECTION SNOMED Code(s): 63485816 (2) Alcohol abuse Current Visit: Yes Status: Acute Code(s): F10.10 - ALCOHOL ABUSE, UNCOMPLICATED SNOMED Code(s): 06589373 Plan: 1. Continue symptomatic and supportive care 2. Diet per recommendations from general surgery 3. Pain medication as needed 4. Antiemetics as needed 5. Protonix 40 mg daily for GI prophylaxis 6. There is no indication for any gastroenterology intervention at this time 7. Patient scheduled for cholecystectomy today 8. Continue with alcohol abstinence. Thank you for this consultation, we will sign off at this time. Dr. Corina Costa I agree with the dictator's note, documented as a scribe by Shelly Orozco.
[2024-07-24] MEDS: LACTATED RINGERS 1,000 ML IV ONE (13:45)
[2024-07-24] MEDS ORDERED: HYDROcodone/APAP 5-325MG 1 EACH TAB PO PRN (13:48)
--- NOTE | 2024-07-24 13:53 | P.OP ---
Date of Procedure: 07/24/24 Preoperative Diagnosis: Gallstone pancreatitis Postoperative Diagnosis: Gallstone pancreatitis Procedure(s) Performed: Robotic cholecystectomy Anesthesia: JUAN Surgeon: Adam Kenyon Pathology: other (Gallbladder and contents) Condition: stable Disposition: floor Indications for Procedure: 63-year-old male presented to the emergency department with complaint of abdominal pain. On workup he is found to have gallstone pancreatitis. Pancreatitis has improved over the past few days during his admission and recommendation is for cholecystectomy. Patient also has history of alcohol abuse, however he has been in a rehabilitation home for the past 2 weeks and has not had any alcohol. Plan is for cholecystectomy. Patient is aware of risk of recurrence of pancreatitis should he continue alcohol use. Risks, benefits and alternatives were provided prior to attending the operating suite. Operative Findings: Distended gallbladder Description of Procedure: Patient was brought to the operating suite and placed on the operating table. General anesthetic was administered and the patient was prepped and draped in regular sterile fashion. Infraumbilical incision was made and dissection was carried to the fascia. The fascia was incised and an 8 mm trocar was placed. Pneumoperitoneum was achieved. 2 additional 8 mm trocars were placed in the right upper quadrant and 1 in the left. Patient was then positioned appropriately and the robot was docked. The gallbladder was then grasped and elevated superiorly and laterally and needle was placed within the gallbladder to suction out contents secondary to significant distention. Bilious material was drained. Dissection was then carried along the infundibulum towards the cystic duct and the cystic duct was skeletonized. Similarly, cystic artery was skeletonized. ICG was used to confirm anatomy. 2 clips were placed proximally on the cystic duct 1 was placed distally and the cystic duct was ligated. Similarly, to close were placed proximally on the cystic artery and 1 was placed distally and the cystic artery was ligated. Cautery was then used to dissect the gallbladder off of the gallbladder fossa and it was placed in an Endo Catch bag and removed from the abdomen from the infraumbilical incision site. Cautery was used to confirm hemostasis of the gallbladder fossa. During resection of the gallbladder, bile spillage was noted from the needle insertion site. This was suctioned and irrigated. No evidence of bile leakage was noted and no bleeding was noted. At this point, the inferior umbilical incision site was closed under direct visualization using an 0 Vicryl suture and Lawrence-Octavia device. Pneumoperitoneum was released. All ports removed from the abdomen. All incision sites were closed with 4-0 Vicryl subcuticular suture. Sterile dressing was applied. The patient was awakened in the operating suite and taken to postanesthesia care unit in stable condition.
[2024-07-24] MEDS: HYDROmorphone 0.5 MG/0.5 ML SYRINGE IVP PRN (15:02)
[2024-07-24] MEDS: KETOROLAC 15 MG/ML 1 ML VIAL IVP PRN (16:50)
[2024-07-24] MEDS: INDOCYANINE GREEN 25 MG VIAL IV STA (16:59)
--- NOTE | 2024-07-24 17:04 | P.PN ---
Subjective Progress Note Date: 07/24/24 Hospital Course: Patient is a 63-year-old male with a past medical history of daily alcohol abuse with last reported drink being mid June and has been at inpatient drug and alcohol rehabilitation facility[facility] since 07/10/24. Patient reports he has been experiencing abdominal pain since yesterday and worsening today and was sent to the emergency department for evaluation. Patient reports diffuse intense abdominal pain throughout entire abdomen worse in epigastric region and bilateral upper quadrants accompanied by nausea. He denies having any fevers, chills, diaphoresis, chest pain, palpitations, shortness of breath, cough or congestion, vomiting, hematemesis, constipation, diarrhea, melena, hematochezia, or experiencing any difficulties with or changes in urinary function. Patient denies history of pancreatitis in the past. Upon arrival to our facility, patient underwent evaluation in the emergency department. Vital signs upon arr ival show blood pressure 176/96, heart rate 90, respiratory rate 16, temp 98.4 F, and SpO2 of 95% on room air. Labs completed and reviewed. CBC showing macrocytosis with MCV of 105.2 otherwise normal findings. BMP showing hypercarbia with bicarb of 31 otherwise normal findings blood glucose 83. Lactic acid 1.0. Liver profile unremarkable. Amylase critical at 4902 and lipase greater than 20,000. Urinalysis negative for blood or infection. Gallbladder ultrasound showing distended gallbladder with few small gallstones and thickened lateral hamilton with hepatocellular disease/hepatic steatosis. CT abdomen and pelvis with IV contrast then completed showing subtle inflammatory changes and fluid surrounding the body and tail of the pancreas consistent with acute pancreatitis, hydropic gallbladder with cholelithiasis, surface nodularity of the liver without focal lesions suspicious for hepatic cirrhosis and colonic diverticulosis without evidence for acute diverticulitis. Patient admitted under our services with consultation to gastroenterology and general surgery secondary to gallstone pancreatitis. Physical exam: Patient was seen and fully evaluated at bedside. He reports pain medication is taking the edge of his abdominal pain, but reports it remains. He denies any nausea or vomiting or any further complaints at this time.. Vital signs reviewed and stable. General: Nontoxic, no distress and appears stated age. Derm: Skin warm and dry, normal coloration for ethnicity. Head: Atraumatic, normocephalic and symmetric. Eyes: EOM's intact, no lid lag, and anicteric sclera Mouth: no lip lesions, mucus membranes moist Cardiovascular: regular rate and rhythm with normal S1S2, no murmur, positive posterior tibial pulses bilaterally, and cap refill < 2 seconds. Lungs: Respirations even, regular, and unlabored on room air. Lungs CTA bilaterally, no rhonchi, no rales, no wheezing, and no accessory muscle usage. Abdominal: Soft, Diffuse tenderness throughout palpation worse in epigastric and upper quadrants. Ext: ROM intact. No gross muscle atrophy, no edema, no contractures Neuro: Speech clear, face symmetrical and CN II-XII grossly intact with no noted focal neuro deficits Psych: Alert and oriented to person, place, time, and situation. Appropriate and pleasant affect. Assessment and Plan of Care: Gallstone pancreatitis -NPO exception of ice chips, diet to be advanced slowly once completion of laparoscopic cholecystectomy. -IV fluid hydration with LR at 150 cc/h pending completion of surgical procedure then decrease to 75 cc/h once diet is advanced. -Symptomatic care and pain management with Toradol 15 mg every 6 hours as needed for mild to moderate pain, Dilaudid 0.5 mg every 3 hours as needed for moderate to severe pain and Dilaudid 1 mg IVP every 3 hours as needed for breakthrough severe pain. -GI prophylaxis with Protonix 40 mg daily. -Gastroenterology following, reviewed documentation in chart. -General Surgeon following, discussed case with Dr. Kenyon and patient scheduled for laparoscopic cholecystectomy later today. Alcohol abuse Hepatic steatosis, suspected hepatic cirrhosis Macrocytosis, secondary to chronic alcohol abuse -Patient reports last alcoholic drink was mid-June and has been at inpatient drug and alcohol rehabilitation facility since 07/10/2024. -Continue daily thiamine, folic acid, and multivitamin. -Recommend returning to [facility] upon discharge Nicotine dependence -Patient was found by nursing staff smoking and bathroom. Order placed for nicotine patch 21 mg daily. Patient advised that he is not allowed to smoke in hospital. Patient verbalized understanding of policy. Data and imaging reviewed: -Labs completed and reviewed. BMP showing mild elevated anion gap of 12.30 otherwise normal findings. Blood glucose 77. Liver profile showing elevated AST of 38 otherwise normal findings. Albumin was low at 3.3. -Vital signs reviewed. Blood pressure 124/68, heart rate 71, respiratory rate 16, temp 98.5 F, and SpO2 of 96% on room air. CODE STATUS: Full code DVT prophylaxis: Lovenox Anticipated discharge date: Likely tomorrow morning Anticipated discharge place: Home versus return to [facility] Patient was seen independently by Nurse Practitioner. This document was prepared using [employer] dictation software. Please allow for errors in cyber instructor while rare they do occur. Kody Ervin NP rendered care for this patient independently, reviewed the fi ndings and plan as documented in the note above and agree with plan. I did not physically speak with or examine the patient on this date. Objective - Vital Signs Vital signs: Vital Signs Temp 98.5 F 07/24/24 07:27 Pulse 71 07/24/24 07:27 Resp 16 07/24/24 07:27 BP 124/68 07/24/24 07:27 Pulse Ox 97 07/24/24 06:50 FiO2 Intake & Output 07/23/24 07/24/24 07/24/24 18:59 06:59 18:59 Intake Total 597 0 Balance 597 0 Intake: Oral 597 0 Other: # Voids 4 2 - Labs CBC & Chem 7: 07/23/24 04:29 07/24/24 04:58 Labs: Abnormal Lab Results - Last 24 Hours (Table) 07/23/24 Range/Units 04:29 AST 37 H (14-35) U/L Total Protein 5.9 L (6.2-8.2) g/dL Albumin 3.2 L (3.8-4.9) g/dL Albumin/Globulin Ratio 1.19 L (1.60-3.17) Ratio Lipase 954 H (14-60) U/L
[2024-07-25 06:45] VITALS: RESP 18
[2024-07-25 10:18] LABS: HCT 43.3 % (39.6-50.0); HGB 14.9 g/dL (13.0-17.0); MCH 35.1 pg (27.0-32.0); MCHC 34.4 g/dL (32.0-37.0); MCV 102.1 FL (80.0-97.0); Mean Platelet Volume 13.5 FL (9.5-12.2); NRBC Per 100 WBC 0 X 10*3/uL (0.00-0.01); Platelet Count 145 X 10*3/uL (140-440); RBC 4.24 X 10*6/uL (4.40-5.60); RDW 11.9 % (11.5-14.5); WBC 10.39 X 10*3/uL (4.50-10.00)
[2024-07-25 10:27] LABS: Magnesium 1.9 mg/dL (1.5-2.4)
[2024-07-25 10:35] LABS: ALT 53 U/L (10-49); AST 95 U/L (14-35); Albumin 3.6 g/dL (3.8-4.9); Albumin/Globulin Ratio 1.12 Ratio (1.60-3.17); Alkaline Phosphatase 89 U/L (41-126); Blood Urea Nitrogen 11.3 mg/dL (9.0-27.0); Carbon Dioxide 22.3 mmol/L (21.6-31.8); Chloride 102 mmol/L (96-109); Globulin 3.2 g/dL (1.6-3.3); Glucose 105 mg/dL (70-110); Potassium 4.4 mmol/L (3.5-5.5); Sodium 136 mmol/L (135-145); Total Bilirubin 0.6 mg/dL (0.3-1.2); Total Protein 6.8 g/dL (6.2-8.2)
--- NOTE | 2024-07-25 12:25 | P.DS ---
Providers Date of admission: 07/23/24 16:17 Expected date of discharge: 07/25/24 Attending physician: Sean Charlton MD Consults: 07/22/24 14:34 Consult Physician Urgent Consulting Provider: Mau Villaseñor Consult Reason/Comments: Gallstone pancreatitis Do you want consulting provider notified?: Yes Primary care physician: Stated None Hospital Course: Discharge Diagnosis: Gallstone pancreatitis Acute cholecystitis. Patient underwent laparoscopic cholecystectomy on 07/24/2024 Alcohol abuse Hepatic steatosis, suspected hepatic cirrhosis Macrocytosis, secondary to chronic alcohol abuse Nicotine dependence Hospital Course: Patient is a 63-year-old male with a past medical history of daily alcohol abuse with last reported drink being mid June [facility] Patient reports he has been experiencing abdominal pain since yesterday and worsening today and was sent to the emergency department for evaluation. Patient reports diffuse intense abdominal pain throughout entire abdomen worse in epigastric region and bilateral upper quadrants accompanied by nausea. He denies having any fevers, chills, diaphoresis, chest pain, palpitations, shortness of breath, cough or congestion, vomiting, hematemesis, constipation, diarrhea, melena, hematochezia, or experiencing any difficulties with or changes in urinary function. Patient denies history of pancreatitis in the past. Upon arrival to our facility, patient underwent evaluation in the emergency department. Vital signs upon arrival show blood pressure 176/96, heart rate 90, respiratory rate 16, temp 98.4 F, and SpO2 of 95% on room air. Labs completed and reviewed. CBC showing macrocytosis with MCV of 105.2 otherwise normal findings. BMP showing hypercarbia with bicarb of 31 otherwise normal findings blood glucose 83. Lactic acid 1.0. Liver profile unremarkable. Amylase critical at 4902 and lipase greater than 20,000. Urinalysis negative for blood or infection. Gallbladder ultrasound showing distended gallbladder with few small gallstones and thickened lateral hamilotn with hepatocellular disease/hepatic steatosis. CT abdomen and pelvis with IV contrast then completed showing subtle inflammatory changes and fluid surrounding the body and tail of the pancreas consistent with acute pancreatitis, hydropic gallbladder with cholelithiasis, surface nodularity of the liver without focal lesions suspicious for hepatic cirrhosis and colonic diverticulosis without evidence for acute diverticulitis. Patient admitted under our services with consultation to gastroenterology and general surgery secondary to gallstone pancreatitis. Patient was evaluated by agricultural extension agent and general surgeon. Liver enzymes remained stable. Patient was taken for laparoscopic cholecystectomy on 07/24/2024. He is tolerating oral intake and diet advanced to low-fat. Patient cleared from gastroenterology and general surgery perspective and is medically optimized and stable for discharge back to [facility] at this time. Physical exam: Vital signs reviewed and stable. General: Nontoxic, no distress and appears stated age. Derm: Skin warm and dry, normal coloration for ethnicity. Head: Atraumatic, normocephalic and symmetric. Eyes: EOM's intact, no lid lag, and anicteric sclera Mouth: no lip lesions, mucus membranes moist Cardiovascular: regular rate and rhythm with normal S1S2, no murmur, positive posterior tibial pulses bilaterally, and cap refill < 2 seconds. Lungs: Respirations even, regular, and unlabored on room air. Lungs CTA bilaterally, no rhonchi, no rales, no wheezing, and no accessory muscle usage. Abdominal: Soft, Diffuse tenderness surrounding laparoscopic incision sites. Ext: ROM intact. No gross muscle atrophy, no edema, no contractures Neuro: Speech clear, face symmetrical and CN II-XII grossly intact with no noted focal neuro deficits Psych: Alert and oriented to person, place, time, and situation. Appropriate and pleasant affect. A total of 34 minutes of time were spent preparing this complex discharge summary. Pt was discharged on 07/25/2024 at 12:18 PM. Patient was seen independently by Nurse Practitioner. This document was prepared using [employer] dictation software. Please allow for errors in mechanical apprentice while rare they do occur. Kody Ervin NP rendered care for this patient independently, reviewed the findings and plan as documented in the note above. I did not physically speak with or examine the patient on this date. Patient Condition at Discharge: Stable Plan - Discharge Summary New Discharge Prescriptions: Continue guaiFENesin SYRUP 100MG/5ML [Robitussin] 200 mg PO Q4H PRN PRN Reason: Cough Multivitamins, Thera [Multivitamin (formulary)] 1 tab PO DAILY Ibuprofen [Motrin Ib] 600 mg PO Q6H PRN PRN Reason: Pain cloNIDine HCL [Catapres] 0.1 - 0.3 mg PO Q4H PRN PRN Reason: BP >160/100 Calcium Phos/D3/Magnesium/Zinc [Vwbxrku-Gva-Vdvt-Vitamin D3] 1 tab PO TID PRN PRN Reason: Supplement Acetaminophen Tab [Tylenol] 650 mg PO Q4H PRN PRN Reason: Fever And/ Or Pain traZODone HCL [Desyrel] 50 - 150 mg PO HS PRN PRN Reason: Insomnia Tolnaftate [Tinactin] 1 applic TOPICAL DIRECTED Thiamine [Vitamin B-1] 100 mg PO DAILY Chlorpheniramine Maleate [Chlor-Trimeton] 4 mg PO Q4H PRN PRN Reason: Allergy Symptoms ondansetron HCL [Zofran] 8 mg PO Q6H PRN PRN Reason: Nausea And Vomiting Discharge Medication List Acetaminophen Tab [Tylenol] 650 mg PO Q4H PRN 07/22/24 [History] Calcium Phos/D3/Magnesium/Zinc [Pfbwlyt-Mtr-Xeio-Vitamin D3] 1 tab PO TID PRN 07/22/24 [History] Chlorpheniramine Maleate [Chlor-Trimeton] 4 mg PO Q4H PRN 07/22/24 [History] Ibuprofen [Motrin Ib] 600 mg PO Q6H PRN 07/22/24 [History] Multivitamins, Thera [Multivitamin (formulary)] 1 tab PO DAILY 07/22/24 [History] Thiamine [Vitamin B-1] 100 mg PO DAILY 07/22/24 [History] Tolnaftate [Tinactin] 1 applic TOPICAL DIRECTED 07/22/24 [History] cloNIDine HCL [Catapres] 0.1 - 0.3 mg PO Q4H PRN 07/22/24 [History] guaiFENesin SYRUP 100MG/5ML [Robitussin] 200 mg PO Q4H PRN 07/22/24 [History] ondansetron HCL [Zofran] 8 mg PO Q6H PRN 07/22/24 [History] traZODone HCL [Desyrel] 50 - 150 mg PO HS PRN 07/22/24 [History] Follow up Appointment(s)/Referral(s): Sergey Sadler MD [REFERRING] - 1 Week (Please call and schedule appointment with residency clinic prior to discharge Office is closed- please call and schedule appointment) Patient Instructions/Handouts: *[facility] - Laparoscopic Cholecystectomy Discharge Instructions, *[facility] - Managing Your Pain After Surgery Without Opioids, Pancreatitis (DC), Medical Clearance for Substance Abuse Treatment (DC) Activity/Diet/Wound Care/Special Instructions: [facility] Address: [address] [place] [address] [facility] Address: [place] [address] Activity: As tolerated. Take breaks as needed. Do not lift anything greater than 10 po unds until further instructed by your general surgeon at follow-up appointment. Diet: Low-Fat diet Special Instructions: Take all of your medications as directed and remember to keep all of your doctor's appointments and follow-up as needed. Thank you for allowing us to participate in your care, it was truly a pleasure having you for our patient!!! Discharge/Stand Alone Forms: AA Meetings [facility] - [facility], AA Meetings [facility], Who Do I Call?, Community Resources, Outpatient Counseling, Inp Substance Abuse Facilities, Area PCPs
[2024-07-25 12:48] VITALS: BP 160/87; PULSE 62; TEMP 98.1
--- NOTE | 2024-07-25 16:02 | P.PN ---
Subjective Progress Note Date: 07/25/24 SURGICAL PROGRESS NOTE CHIEF COMPLAINT: Gallstone pancreatitis HISTORY OF PRESENT ILLNESS: Postop day #1 status post Robotic cholecystectomy. Patient reports his pain is controlled. He denies any nausea or vomiting. He is having flatus. He has been up and ambulating. Denies any difficulty urinating. He did tolerate diet. Afebrile. WBC 10.39 Hgb up from 13.8-14.9 platelets 145 sodium is 136 potassium is 4.4 creatinine 1.0 total bilirubin 0.6 AST 95 ALT 53 alk phos 89 PHYSICAL EXAM: VITAL SIGNS: Reviewed. GENERAL: Well-developed in no acute distress. HEENT: No sclera icterus. Extraocular movements grossly intact. Moist buccal mucosa. Head is atraumatic, normocephalic. ABDOMEN: Soft. Mildly distended. Incision sites clean dry and intact. Minimal tenderness at incision sites. NEUROLOGIC: Alert and oriented. Cranial nerves II through XII grossly intact. ASSESSMENT: 1. Gallstone pancreatitis 2. History of alcohol abuse PLAN: -Patient can be discharged from surgical standpoint -Recommend low-fat diet Physician Plate Developer note has been reviewed by physician. Signing provider agrees with the documented findings, assessment, and plan of care. Objective - Vital Signs Vital signs: Vital Signs Temp 98.1 F 07/25/24 12:47 Pulse 62 07/25/24 12:47 Resp 18 07/25/24 12:47 BP 160/87 07/25/24 12:47 Pulse Ox 83 L 07/25/24 02:00 FiO2 Intake & Output 07/24/24 07/25/24 07/25/24 18:59 06:59 18:59 Intake Total 850 Output Total 7 250 250 Balance 843 -250 -250 Intake: IV 850 Output: Urine 250 250 Estimated Blood Loss 7 Other: # Voids 3 2 2 # Bowel Movements 1 - Labs CBC & Chem 7: 07/25/24 06:25 07/25/24 06:25 Labs: Abnormal Lab Results - Last 24 Hours (Table) 07/25/24 07/25/24 Range/Units 06:25 06:25 WBC 10.39 H (4.50-10.00) X 10*3/uL RBC 4.24 L (4.40-5.60) X 10*6/uL MCV 102.1 H (80.0-97.0) FL MCH 35.1 H (27.0-32.0) pg MPV 13.5 H (9.5-12.2) FL BUN/Creatinine Ratio 11.30 L (12.00-20.00) Ratio AST 95 H (14-35) U/L ALT 53 H (10-49) U/L Albumin 3.6 L (3.8-4.9) g/dL Albumin/Globulin Ratio 1.12 L (1.60-3.17) Ratio
== END 2024-07-25 14:40 | disposition home or self-care (01) | DRG 263 ==
LOC: EC 11:05 → 6NMEDSUR 14:11 → OBSVTOIN 07-23 16:17
PROVIDERS: ADMIT Internal Medicine; ATTEND Internal Medicine
PROC: 8E0W4CZ Robotic Assisted Procedure of Trunk Region, Percutaneous Endoscopic Approach (ICD-10-PCS; 2024-07-24)
PROC: 0FT44ZZ Resection of Gallbladder, Percutaneous Endoscopic Approach (ICD-10-PCS; principal; 2024-07-24 12:30)
DX: K85.10 Biliary acute pancreatitis without necrosis or infection (principal); F10.10 Alcohol abuse, uncomplicated; K76.0 Fatty (change of) liver, not elsewhere classified; K85.20 Alcohol induced acute pancreatitis without necrosis or infection; K70.30 Alcoholic cirrhosis of liver without ascites; D75.89 Other specified diseases of blood and blood-forming organs; K82.1 Hydrops of gallbladder; K80.00 Calculus of gallbladder with acute cholecystitis without obstruction; K57.30 Diverticulosis of large intestine without perforation or abscess without bleeding; F17.200 Nicotine dependence, unspecified, uncomplicated; Z88.8 Allergy status to other drugs, medicaments and biological substances; Z71.41 Alcohol abuse counseling and surveillance of alcoholic; Z71.6 Tobacco abuse counseling
CPT/HCPCS: 36415; 74177; 76705; 80053; 81001; 82150; 82248; 83605; 83690; 83735; 85025; 85027; 88304; 93005; 96374; 96375; 96376; 99285